=== PATIENT | female | born 1965 | race Caucasian/White ===

== ENCOUNTER → 2020-06-24 | Outpatient (CLI) | payer BC | LOC: KOH-I 12:17 | DX: M62.81 Muscle weakness (generalized) (principal); M47.816 Spondylosis without myelopathy or radiculopathy, lumbar region | CPT/HCPCS: 72100 ==

== ENCOUNTER → 2020-06-30 | Outpatient (CLI) | payer BC | LOC: EXRD 11:13 | DX: Z78.0 Asymptomatic menopausal state (principal); M85.89 Other specified disorders of bone density and structure, multiple sites | CPT/HCPCS: 77080 ==

== ENCOUNTER → 2020-09-15 | Outpatient (CLI) | payer BC | LOC: KOH-I 14:53 | DX: D15.1 Benign neoplasm of heart (principal) | CPT/HCPCS: 71046 ==